=== PATIENT | male | born 1955 | race Caucasian/White ===

== ENCOUNTER → 2017-01-05 | Outpatient (CLI) | payer OTHER ==
[~2017-01-05] MED LIST: CYCL10TA2 PO; HYDR-2762 PO; IBUP-1060 PO; TEMA15CA6 PO
[2017-01-05 16:03] LABS: ALBUMIN 4.2 g/dL (3.4-5.0); CALCIUM 9.7 mg/dL (8.5-10.1); CREATININE 0.8 mg/dL (0.7-1.3); GFR 98.9; POTASSIUM 4.6 mmol/L (3.5-5.1); TOTAL BILIRUBIN 0.6 mg/dL (0.2-1.0); TOTAL PROTEIN 8.5 g/dL (6.4-8.2)
[2017-01-05 18:03] LABS: BASO # 0.1 x10^3/uL (0.0-0.2); BASO % 1 % (0-3); EOS % 3 % (0-3); HEMATOCRIT 47.8 % (39.0-53.0); HEMOGLOBIN 16.4 g/dL (13.0-17.5); LYMPH % 27 % (24-48); MEAN CORPUSCULAR HEMOGLOBIN 32 pg (25-35); MEAN CORPUSCULAR HGB CONC 34 g/dL (31-37); MEAN CORPUSCULAR VOLUME 92 fL (79-100); MONO % 8 % (0-9); NEUT % 62 % (31-73); PLATELET COUNT 108 x10^3/uL (140-400); RED BLOOD COUNT 5.17 x10^6/uL (4.30-5.70); RED CELL DISTRIBUTION WIDTH 13.9 % (11.5-14.5); WHITE BLOOD COUNT 7.6 x10^3/uL (4.0-11.0)
== END | disposition home or self-care (01) ==
LOC: SURGPAT 14:39
PROVIDERS: ATTEND Neurological Surgery
DX: Z01.812 Encounter for preprocedural laboratory examination (principal)
CPT/HCPCS: 36415; 80053; 85027

== ENCOUNTER 2017-01-29 07:13 | Observation (INO) | payer OTHER ==
--- NOTE | 2017-01-13 15:30 | HP ---
ADMIT DATE: 01/14/2017 HISTORY OF PRESENT ILLNESS: Leonardo is a pleasant 61-year-old man who is having difficulty with low back pain and pain with radiation to his lower extremities. Most of the pain is in his left leg. The pain tends to radiate into the left anterior thigh. He says he notices back pain and then the pain in the buttock, which then radiates into the hip and anterior thigh. Standing and walking increases his pain significantly. He gets relief by sitting, but after sitting for an hour or so, he has to get up and move. He said the problem has been present for years, but became much worse about 6 months ago. He did have surgery by Dr. Hodge 13 years ago and said that it was not significantly improved. He takes gabapentin, which he feels is not helping as well as ibuprofen, which he also feels is currently not of benefit. He has had chiropractic treatment, which he said did not help. He tried physical therapy for about 2 months and said it was not helping. Epidural steroid injections of lumbar spine were recommended, but the physician said that they would not be of benefit. He does not notice weakness in his lower extremities. The principal problem is pain. PAST MEDICAL HISTORY: Epilepsy and hepatitis C. PAST SURGICAL HISTORY: Spinal stenosis with a laminectomy in 2004. FAMILY HISTORY: No family history reported. SOCIAL HISTORY: Retired. Single. Rarely exercises. Smokes 1 pack per day and has for 40 years. Does not drink alcohol currently. He quit drinking alcohol greater than 10 years ago. He drinks coffee. ALLERGIES: To ANTIHISTAMINE. CURRENT MEDICATIONS: Gabapentin, ibuprofen, temazepam, and Flexeril. REVIEW OF SYSTEMS: A 12-point review of systems was obtained and is noncontributory except that mentioned above. PHYSICAL EXAMINATION: Neurosurgery examination: GENERAL APPEARANCE: Alert, pleasant, in no acute distress. HEAD: Normocephalic and atraumatic. SKIN: Warm and dry, well-healed lumbar incision. MUSCULOSKELETAL: Lumbar paraspinal muscle bulk is normal, restricted range of motion of lumbar spine, [id number] tenderness of lower lumbar spine with palpation, normal range of motion of the lower extremities bilaterally. EXTREMITIES: No clubbing, cyanosis, or edema. NEUROLOGIC: Alert and oriented x 3, normal recent and remote memory, strength 5/5 in bilateral lower extremities, sensory was intact to light touch in bilateral lower extremities, reflexes were present and symmetric in the lower extremities bilaterally, absent knee jerks bilaterally, negative straight leg raising bilaterally, normal gait. IMAGING: I reviewed a lumbar MRI scan. On that study, there are postoperative changes with a laminectomy at L3-L4 and L4-L5. There is severe lateral encroachment of both of these levels, worse at L3-L4. This results in severe stenosis at L3-L4 and moderately severe stenosis at L4-L5. ASSESSMENT/ PLAN: He has a lumbar spinal stenosis at L3-L4 and L4-L5. The problem has not improved with conservative measures. Surgery is difficult and both of these levels had extensive surgery. My recommendation at this point is that since the left-sided pain is much more severe than the right, I would operate on the left direct approach to decompress the nerve roots on the left and see if this will offer him some relief. I explained in the future, he may need surgery on the right-hand side as well. I did caution him about the risks of spinal fluid leak associated with operating his previously operated region with severe stenosis. He understands. He would like to go ahead. We will make the arrangements. ARIANNA GOOD MD DR: HERNANDO/giovanny JOB#: [id number] / [id number] AIDEN
[2017-01-29] VITALS (10 sets, daily range): BP systolic 138–180; BP diastolic 78–101
[~2017-01-29] VITALS: Ht 170.2 cm; Wt 82.1 kg
--- NOTE | 2017-01-29 06:48 | HP ---
ADMIT DATE: 01/29/2017 PREOPERATIVE HISTORY AND PHYSICAL HISTORY OF PRESENT ILLNESS: The patient is a pleasant 61-year-old man who is having difficulty with low back pain and pain with radiation to his lower extremities. Most of the pain is in his left leg. He says that the pain tends to radiate into the left anterior thigh. He says he notices back pain and pain in the buttock, which then radiates into the hip and anterior thigh. Standing and walking increases his pain significantly. He gets relief by sitting, but after sitting for an hour or so, he has to get up and move. He said that the problem has been present for years, but became much worse about 6 months ago. He did have surgery 13 years ago and said that he was not significantly improved. He takes gabapentin, which he feels is not helping as well as ibuprofen, which he also feels is currently not of any benefit. He has had chiropractic treatment, which he said did not help. He tried physical therapy for about 2 months and said it was also not helping. Epidural steroid injections in the lumbar spine were recommended, but the physician said that they would not be of any benefit. He does not notice weakness in his lower extremities. The principal problem is pain. PAST MEDICAL HISTORY: Epilepsy and hepatitis C. PAST SURGICAL HISTORY: Spinal stenosis with a laminectomy in 2004. FAMILY HISTORY: Noncontributory. SOCIAL HISTORY: Retired. Single. Rarely exercises. Smokes 1 pack per day and has for 40 years. He does not drink alcohol. He quit drinking alcohol greater than 10 years ago. He drinks coffee. ALLERGIES: TO ANTIHISTAMINES. CURRENT MEDICATIONS: Gabapentin, ibuprofen, temazepam and cyclobenzaprine. REVIEW OF SYSTEMS: A 12-point review of systems was obtained and is noncontributory except for that mentioned above. PHYSICAL EXAMINATION: Neurosurgery examination: GENERAL APPEARANCE: Alert, pleasant, in no acute distress. HEAD: Normocephalic and atraumatic. SKIN: Warm and dry, well-healed lumbar incision. MUSCULOSKELETAL: Lumbar paraspinal muscle bulk is normal, restricted range of motion of the lumbar spine, [id number] tenderness of the lower lumbar spine with palpation, normal range of motion of the lower extremities bilaterally. EXTREMITIES: No clubbing, cyanosis or edema. NEUROLOGIC: Alert and oriented x 3, normal recent and remote memory, strength 5/5 in bilateral lower extremities, sensory was intact to light touch in bilateral lower extremities, reflexes were present and symmetric in lower extremities bilaterally. Absent knee jerks bilaterally, negative straight leg raising bilaterally, normal gait. IMAGING: I reviewed a lumbar MRI scan. On that study, there are postoperative changes with a laminectomy at L3-L4 and L4-L5. There is severe lateral encroachment at both of these levels, but worse at L3-L4. This results in severe stenosis at L3-L4 and moderately severe stenosis at L4-L5. ASSESSMENT/ PLAN: He has lumbar spinal stenosis at L3-L4 and L4-L5. The problem has not improved with conservative measures. Surgery is difficult in that both of these levels has had extensive surgery in the past. My recommendation at this point is that since the left-sided pain is much more severe than the right, I would operate on the left direct approach and decompress the nerve roots on the left and see if this will offer him some relief. I explained that in the future, he may need surgery on the right side as well. I did caution him about the risks of spinal fluid leak associated with operating in his previously operated region with severe stenosis. He understands. He would like to go ahead. We will make the arrangements. ARIANNA GOOD MD DR: HERNANDO/giovanny JOB#: [id number] / [id number] AIDEN
[~2017-01-29 07:13] MED LIST changes: +BACITRACIN 50,000 UNIT in IV NORMAL SALINE 1000ML BAG 1,000 ML IRR ONE; +CEFAZOLIN 2GM PREMIX 50 ML IV PRN; +FENTANYL PF 100 MCG/2 ML VIAL. IV PRN; +IV RINGERS,LACTATED 1000ML 1,000 ML IV SCH; +LIDOCAINE 1% 1 ML SYRINGE. ID PRN; +ONDANSETRON PF 4 MG/2 ML VIAL. IV PRN; +PROCHLORPERAZINE 10 MG/2 ML VIAL. IV PRN
[2017-01-29] MEDS ORDERED: KETOROLAC 60 MG/2 ML SYRINGE FOR OR. ONE (07:29)
[2017-01-29] MEDS ORDERED: BUPIVAC MPF-EPI 0.5%-1:200000 30 ML VIAL. ONE (07:29)
[2017-01-29] MEDS ORDERED: THROMBIN 20,000 UNIT SPRAY.SYRN KIT TP ONE ×2 (07:29→16:17)
[2017-01-29] MEDS ORDERED: GELATIN SPONGE SIZE 100. ONE (07:29)
[2017-01-29] MEDS: IV RINGERS,LACTATED 1000ML 1,000 ML IV SCH ×2 (08:09→21:20)
[2017-01-29] MEDS ORDERED: LIDOCAINE 2% 100 MG/5 ML DISP.SYRIN. ONE (08:31)
[2017-01-29] MEDS ORDERED: PROPOFOL 20 ML IV ONE (08:31)
[2017-01-29] MEDS ORDERED: PROPOFOL 50 ML IV ONE ×2 (08:31→13:23)
[2017-01-29] MEDS ORDERED: REMIFENTANIL 2 MG VIAL. IV ONE (08:31)
[2017-01-29] MEDS ORDERED: FENTANYL PF 100 MCG/2 ML VIAL. ONE (08:31)
[2017-01-29] MEDS ORDERED: 0.9 % SODIUM CHLORIDE 50 ML VIAL. IJ ONE (08:31)
[2017-01-29] MEDS ORDERED: SUCCINYLCHOLINE 200 MG/10 ML VIAL. ONE (08:32)
[2017-01-29] MEDS ORDERED: ROCURONIUM 50 MG/5 ML VIAL. ONE (08:32)
[2017-01-29] MEDS ORDERED: DESFLURANE 61 TO 120 MINUTES IH ONE (12:07)
[2017-01-29] MEDS ORDERED: ONDANSETRON PF 4 MG/2 ML VIAL. ONE (12:07)
[2017-01-29] MEDS ORDERED: DEXAMETHASONE SOD PHOS 20 MG/5 ML VIAL. ONE (12:08)
[2017-01-29] MEDS ORDERED: EPHEDRINE PF IN SALINE 50 MG/5 ML DISP.SYRIN. IV ONE (12:09)
[2017-01-29] MEDS ORDERED: PHENYLEPHRINE in 0.9% NACL PF 1 MG/10 ML DISP.SYRIN. IV ONE (12:25)
[2017-01-29] MEDS: POTASSIUM CL 20MEQ D5-0.45NACL 1,000 ML IV SCH ×2 (15:44→19:35)
[2017-01-29] MEDS ORDERED: CALCIUM CARBONATE 500 MG TAB.CHEW PO PRN (15:45)
[2017-01-29] MEDS ORDERED: FENTANYL PF 100 MCG/2 ML VIAL. IV PRN ×2 (15:45)
[2017-01-29] MEDS ORDERED: MAG HYDROX/ALUMINUM HYD/SIMETH 30 ML ORAL.SUSP PO PRN (15:45)
[2017-01-29] MEDS ORDERED: 0.9 % SODIUM CHLORIDE 10 ML DISP.SYRIN. IV PRN (15:45)
[2017-01-29] MEDS ORDERED: MAGNESIUM HYDROXIDE 2,400 MG/30 ML ORAL.SUSP. PO PRN (15:45)
[2017-01-29] MEDS ORDERED: ONDANSETRON PF 4 MG/2 ML VIAL. IV PRN (15:45)
[2017-01-29] MEDS ORDERED: ACETAMINOPHEN 325 MG TABLET. PO PRN (15:45)
[2017-01-29] MEDS ORDERED: ZOLPIDEM 5 MG TABLET. PO PRN (15:45)
[2017-01-29] MEDS ORDERED: IBUPROFEN 800 MG TABLET. PO PRN (15:45)
[2017-01-29] MEDS ORDERED: TEMAZEPAM 15 MG CAPSULE PO PRN (15:45)
[2017-01-29] MEDS: FENTANYL PF 100 MCG/2 ML VIAL. IV PRN ×2 (15:49→15:57)
[2017-01-29] MEDS ORDERED: TRAMADOL 50 MG TABLET. PO PRN ×2 (19:30)
[2017-01-29] MEDS: DOCUSATE SODIUM 100 MG CAPSULE PO SCH (20:53)
[2017-01-29] MEDS: CYCLOBENZAPRINE 10 MG TABLET. PO PRN (22:54)
[2017-01-30 00:49] VITALS: BP 155/76
[2017-01-30 02:50] VITALS: BP 156/81
[2017-01-30 06:15] VITALS: BP 160/81
[2017-01-30] MEDS: IV RINGERS,LACTATED 1000ML 1,000 ML IV SCH (07:55)
[2017-01-30] MEDS: POTASSIUM CL 20MEQ D5-0.45NACL 1,000 ML IV SCH (07:55)
--- NOTE | 2017-01-30 09:20 | DISCH ---
DISCHARGE INSTRUCTIONS Condition on Discharge Condition on Discharge: Stable Activity After Discharge Activity Instructions for Disc: Activity as tolerated, Avoid exertion Other activity instructions: no driving for a week Bathing Instructions: Shower-keep dressing dry Lifting Instructions after Dis: No heavy lifting, No pulling or pushing, Do not lift >10 pounds Diet after Discharge Additional Diet Restrictions: resume home diet Wound Incision Care Wound/Incision Care: Ice to area for comfort Other wound/incision instructi: may remove dressing in 48 hrs if drythen may shower- no soaking Contacting the after DC Call your doctor for: Concerns you may have Follow-Up Follow up with: Dr. Shah in 2 weeks [phone] MARILEE COOK APRN Jan 30, 2017 09:20
[2017-01-30] MEDS ORDERED: TRAM50TA PO (09:21)
[2017-01-30] MEDS ORDERED: METH-38 PO (09:24)
[2017-01-30] MEDS: DOCUSATE SODIUM 100 MG CAPSULE PO SCH (09:34)
[2017-01-30] MEDS: CYCLOBENZAPRINE 10 MG TABLET. PO PRN (09:35)
--- NOTE | 2017-01-30 09:44 | PDOC ---
PROGRESS NOTES Subjective Subjective POD #1 legs feel good back/ incisional pain controlled with tramadol Objective Objective Vital Signs Date Time Temp Pulse Resp B/P Pulse Ox O2 Delivery O2 Flow Rate FiO2 01/30/17 09:36 16 Room Air 01/30/17 06:15 98.1 70 160/81 97 98.1 01/29/17 15:57 10.0 Intake and Output 01/30/17 07:00 Intake Total 3280 ml Output Total 1800 ml Balance 1480 ml Intake Oral 1230 ml IV Total 2050 ml Output Urine Total 1700 ml Estimated Blood Loss 100 ml Physical Exam General: Alert, Oriented X3, Cooperative, No acute distress MUSCULOSKELETAL: Other (GAYLE) Neuro: Normal speech Skin: Other (Dressing C,D, I, flat) Assessment Assessment Problems Medical Problems: (1) Lumbar stenosis Status: Acute Plan Plan of Care dc home f/u 2 weeks Comment Review of Relevant I have reviewed the following items isis (where applicable) has been applied. Medications Current Medications Ondansetron HCl (Zofran) 4 mg PRN Q6HRS PRN IV Nausea; Start 01/14/17 at 07:00 ; Stop 01/15/17 at 06:59; Status DC Fentanyl Citrate (Fentanyl 2ml Vial) 25 mcg PRN Q5MIN PRN IV MILD PAIN; Start 01/14/17 at 07:00; Stop 01/15/17 at 06:59; Status DC Fentanyl Citrate 50 mcg 50 mcg PRN Q5MIN PRN IV MODERATE PAIN; Start 01/14/17 at 07:00; Stop 01/15/17 at 06:59; Status DC Lactated Ringer's (Iv Lactated Ringers) 1,000 ml @ 30 mls/hr Q24H IV ; Start at 07:00; Stop 01/14/17 at 18:59; Status DC Lidocaine HCl 2 ml 1X PRN PRN ID IV START; Start 01/14/17 at 07:00; Stop at 06:59; Status DC Prochlorperazine Edisylate 5 mg 5 mg PACU PRN PRN IV NAUSEA; Start 01/14/17 at 07:00; Stop 01/15/17 at 06:59; Status DC Bacitracin/Sodium Chloride (Iv Sodium Chloride 0.9% 1000ml Bag) 1,000 ml @ 1, 000 mls/hr 1X PERIOP ONCE IRR Last administered on 01/29/17 12:26; Start 01/14 at 06:00; Stop 01/14/17 at 06:59; Status DC Ondansetron HCl (Zofran) 4 mg PRN Q6HRS PRN IV Nausea; Start 01/29/17 at 07:00; Stop 01/30/17 at 06:59; Status DC Fentanyl Citrate (Fentanyl 2ml Vial) 25 mcg PRN Q5MIN PRN IV MILD PAIN; Start 01/29/17 at 07:00; Stop 01/30/17 at 06:59; Status DC Fentanyl Citrate 50 mcg 50 mcg PRN Q5MIN PRN IV MODERATE PAIN Last administered on 01/29/17 15:57; Start 01/29/17 at 07:00; Stop 01/30/17 at 06:59; Status DC Lactated Ringer's (Iv Lactated Ringers) 1,000 ml @ 0 mls/hr Q0M IV ; Start 01/29 at 07:00; Stop 01/29/17 at 18:59; Status DC Lidocaine HCl 2 ml 1X PRN PRN ID IV START; Start 01/29/17 at 07:00; Stop at 06:59; Status DC Prochlorperazine Edisylate 5 mg 5 mg PACU PRN PRN IV NAUSEA; Start 01/29/17 at 07:00; Stop 01/30/17 at 06:59; Status DC Bacitracin 43750 unit/Sodium Chloride 1,000 ml @ 1,000 mls/hr 1X PERIOP ONCE IRR ; Start 01/29/17 at 06:00; Stop 01/29/17 at 06:59; Status DC Cefazolin Sodium/ Dextrose (Ancef 2gm Premix) 50 ml @ 100 mls/hr 1X PREOP PRN IV PRIOR TO PROCEDURE Last administered on 01/29/17 12:05; Start 01/29/17 at 06: 00; Stop 01/29/17 at 18:00; Status DC Bupivacaine HCl/ Epinephrine Bitart (Sensorcain-Mpf Epi 0.5%-1:124429) 30 ml STK -MED ONCE .ROUTE Last administered on 01/29/17 12:26; Start 01/29/17 at 07:29; Stop 01/29/17 at 07:30; Status DC Gelatin (Gelfoam Size 100) 1 each STK-MED ONCE .ROUTE Last administered on 01/29 12:26; Start 01/29/17 at 07:29; Stop 01/29/17 at 07:30; Status DC Ketorolac Tromethamine (Toradol For Or Only) 60 mg STK-MED ONCE .ROUTE Last administered on 01/29/17 12:26; Start 01/29/17 at 07:29; Stop 01/29/17 at 07:30; Status DC Thrombin 57819 unit 20,000 unit STK-MED ONCE TP Last administered on 01/29/17 12:26; Start 01/29/17 at 07:29; Stop 01/29/17 at 07:30; Status DC Lactated Ringer's 1,000 ml @ 75 mls/hr [id number] IV Last administered on 08:09; Start 01/29/17 at 08:00 Propofol (Diprivan) 20 ml @ As Directed STK-MED ONCE IV ; Start 01/29/17 at 08:31 ; Stop 01/29/17 at 08:32; Status DC Lidocaine HCl 100 mg 100 mg STK-MED ONCE .ROUTE ; Start 01/29/17 at 08:31; Stop 01/29/17 at 08:32; Status DC Propofol (Diprivan) 50 ml @ As Directed STK-MED ONCE IV ; Start 01/29/17 at 08:31 ; Stop 01/29/17 at 08:32; Status DC Sodium Chloride (Sodium Chloride) 50 ml STK-MED ONCE IJ ; Start 01/29/17 at 08:31 ; Stop 01/29/17 at 08:32; Status DC Fentanyl Citrate (Fentanyl 2ml Vial) 100 mcg STK-MED ONCE .ROUTE ; Start at 08:31; Stop 01/29/17 at 08:32; Status DC Remifentanil HCl (Ultiva) 2 mg STK-MED ONCE IV ; Start 01/29/17 at 08:31; Stop at 08:32; Status DC Succinylcholine Chloride (Anectine) 200 mg STK-MED ONCE .ROUTE ; Start 01/29/17 at 08:32; Stop 01/29/17 at 08:33; Status DC Rocuronium Axtell (Zemuron) 50 mg STK-MED ONCE .ROUTE ; Start 01/29/17 at 08:32 ; Stop 01/29/17 at 08:33; Status DC Ondansetron HCl (Zofran) 4 mg STK-MED ONCE .ROUTE ; Start 01/29/17 at 12:07; Stop 01/29/17 at 12:08; Status DC Desflurane (Suprane) 60 ml STK-MED ONCE IH ; Start 01/29/17 at 12:07; Stop at 12:08; Status DC Dexamethasone Sodium Phosphate (Decadron) 20 mg STK-MED ONCE .ROUTE ; Start 01/29 at 12:08; Stop 01/29/17 at 12:09; Status DC Ephedrine Sulfate 50 mg STK-MED ONCE IV ; Start 01/29/17 at 12:09; Stop 01/29/17 at 12:10; Status DC Phenylephrine HCl 1 mg 1 mg STK-MED ONCE IV ; Start 01/29/17 at 12:25; Stop at 12:26; Status DC Propofol (Diprivan) 50 ml @ As Directed STK-MED ONCE IV ; Start 01/29/17 at 13:23 ; Stop 01/29/17 at 13:24; Status DC Ibuprofen (Motrin) 800 mg PRN Q6HRS PRN PO INFLAMMATION; Start 01/29/17 at 15:45 Temazepam (Restoril) 15 mg PRN QHS PRN PO INSOMNIA Last administered on 22:54; Start 01/29/17 at 15:45 Fentanyl Citrate (Fentanyl 2ml Vial) 25 mcg PRN Q1HR PRN IV PAIN Last administered on 01/29/17 19:31; Start 01/29/17 at 15:45 Fentanyl Citrate (Fentanyl 2ml Vial) 50 mcg PRN Q1HR PRN IV PAIN; Start at 15:45 Acetaminophen (Tylenol) 650 mg PRN Q6HRS PRN PO MILD PAIN / TEMP; Start at 15:45 Al Hydrox/Mg Hydrox/Simethicone (Mylanta Plus Xs) 30 ml PRN Q3HRS PRN PO HEARTBURN / GAS; Start 01/29/17 at 15:45 Calcium Carbonate/ Glycine (Tums) 500 mg PRN Q3HRS PRN PO INDIGESTION; Start at 15:45 Zolpidem Tartrate (Ambien) 5 mg PRN QHS PRN PO INSOMNIA, MAY REPEAT IN 1HR; Start 01/29/17 at 15:45 Sodium Chloride 3 ml 3 ml QSHIFT PRN IV AFTER MEDS AND BLOOD DRAWS; Start at 15:45 Potassium Chloride/Dextrose/ Sod Cl (KCl 20 Meq In D5W-1/2 NS) 1,000 ml @ 75 mls/hr [id number] IV Last administered on 01/29/17 19:35; Start 01/29/17 at 15:44 Cyclobenzaprine HCl (Flexeril) 10 mg PRN TID PRN PO MUSCLE SPASMS Last administered on 01/30/17 09:35; Start 01/29/17 at 15:45 Docusate Sodium (Colace) 100 mg BID PO Last administered on 01/30/17 09:34; Start 01/29/17 at 21:00 Magnesium Hydroxide (Milk Of Magnesia) 2,400 mg PRN Q12HR PRN PO CONSTIPATION; Start 01/29/17 at 15:45 Ondansetron HCl (Zofran) 4 mg PRN Q6HRS PRN IV NAUESA, 1ST CHOICE; Start at 15:45 Thrombin 20,000 unit STK-MED ONCE TP ; Start 01/29/17 at 16:17; Stop 01/29/17 at 16:18; Status DC Tramadol HCl (Ultram) 50 mg PRN Q6HRS PRN PO PAIN Last administered on 04:31; Start 01/29/17 at 19:30 Tramadol HCl (Ultram) 100 mg PRN Q6HRS PRN PO PAIN Last administered on 09:36; Start 01/29/17 at 19:30 Active Scripts Active Robaxin-750 (Methocarbamol) 750 Mg Tablet 750 Mg PO TID PRN PRN Tramadol Hcl 50 Mg Tablet 100 Mg PO PRN Q6HRS PRN Reported Ibuprofen 800 Mg Tablet 800 Mg PO PRN Q6HRS PRN not given in hospital may resume when available Restoril (Temazepam) 15 Mg Capsule 15 Mg PO HS PRN last dose last night next dose tonigh if needed Vitals/I & O Vital Sign - Last 24 Hours 01/29/17 01/29/17 01/29/17 01/29/17 15:38 15:38 15:49 15:53 Temp 97.0 97.0 Pulse 104 96 Resp 18 20 18 B/P 185/92 171/83 Pulse Ox 100 100 100 O2 Delivery Simple Mask Mask Simple Mask Simple Mask O2 Flow Rate 10 10 10.0 10 01/29/17 01/29/17 01/29/17 01/29/17 15:57 16:00 16:08 16:23 Pulse 94 97 Resp 20 18 20 B/P 175/94 164/88 Pulse Ox 100 96 97 O2 Delivery Simple Mask Room Air Room Air Room Air O2 Flow Rate 10.0 01/29/17 01/29/17 01/29/17 01/29/17 16:38 17:00 17:10 17:15 Temp 97.0 97.7 97.0 97.7 Pulse 88 93 73 Resp 20 18 16 B/P 179/86 138/83 152/91 Pulse Ox 95 93 96 O2 Delivery Room Air Room Air Room Air Room Air 01/29/17 01/29/17 01/29/17 01/29/17 17:30 18:00 18:32 19:00 Temp 97.5 97.5 Pulse 90 99 94 91 Resp 16 18 18 20 B/P 149/101 175/94 178/97 173/91 Pulse Ox 93 94 96 97 O2 Delivery Room Air Room Air 01/29/17 01/29/17 01/29/17 01/29/17 19:30 19:31 20:00 20:07 Pulse 89 Resp 20 20 20 B/P 177/80 Pulse Ox 96 95 96 O2 Delivery Room Air Room Air Room Air Room Air 01/29/17 01/29/17 01/29/17 01/30/17 20:30 21:30 22:58 00:49 Temp 98.0 97.8 98.0 97.8 Pulse 72 72 76 66 Resp 20 20 20 B/P 180/87 158/78 160/83 155/76 Pulse Ox 96 98 96 O2 Delivery Room Air Room Air Room Air 01/30/17 01/30/17 01/30/1717 02:50 04:31 05:45 06:15 Temp 98.2 98.1 98.2 98.1 Pulse 75 70 Resp 20 20 20 20 B/P 156/81 160/81 Pulse Ox 97 97 96 97 O2 Delivery Room Air Room Air Room Air Room Air 01/30/17 01/30/17 07:39 09:36 Resp 16 O2 Delivery Room Air Room Air Intake and Output 01/29/17 01/29/17 01/30/17 15:00 23:00 07:00 Intake Total 50 ml 2180 ml 1050 ml Output Total 450 ml 1350 ml Balance 50 ml 1730 ml -300 ml MARILEE COOK APRN Jan 30, 2017 09:44
[2017-01-30 10:12] VITALS: BP 172/92
--- NOTE | 2017-01-30 10:25 | OP ---
DATE OF SURGERY: 01/29/2017 PREOPERATIVE DIAGNOSIS: Lumbar spinal stenosis with previous surgery at L3-L4, L4-L5. POSTOPERATIVE DIAGNOSIS: Lumbar spinal stenosis with previous surgery at L3-L4, L4-L5. OPERATION PERFORMED: Bilateral hemilaminotomies with removal of scar, thickened ligament and nerve root compression at L3-L4 and L4-L5. The operation was done with EMG monitoring, fluoroscopy and microscopic dissection. SURGEON: Harvinder Good M.D. MEDICAL ILLUSTRATOR: NATALIA Taylor, assisted with the surgery. She assisted with the decompression as well as the closure. OPERATIVE INDICATIONS: The patient is a very pleasant 61-year-old man who is having difficulty with back pain and left greater than right leg pain. 13 years ago, he underwent lumbar surgery which consisted of laminectomy at L3-L4 and L4-L5 and did not do well. Currently on imaging studies, he has severe lateral stenosis with thickened facet hypertrophic ligament and severe nerve root compression at L3-L4 and L4-L5. I recommended bilateral lumbar microdecompressive surgery at both of these levels. He understood the risks involved since the patient had undergone previous very extensive surgery here. He understood the technique and the expected postoperative course and he wished to go ahead. DESCRIPTION OF PROCEDURE: Following general endotracheal anesthesia, the patient was positioned prone on the Declan table. His lumbar region was prepped and draped in standard fashion. ABDOULAYE hose and AV impulse boots were applied for DVT prophylaxis. The microscope was draped. Fluoroscopy was draped and brought into the field. Monitoring was established. Ancef 2 grams was given less than 1 hour prior to initiation of the surgery. Using fluoroscopic guidance, an incision was made from upper L3 to inferior L5. I dissected down through the skin and subcutaneous tissue and I reflected the paraspinal muscles and placed self-retaining retractors. I brought in the microscope and the remainder of surgery was done with the microscope using microscopic technique beginning on the left side. I used a large long curette and exposed the edges of his previous laminectomy, removed scar from over the lateral lamina and the facet. Bringing in high speed air drill, I went to L3-L4. I burred down a very generous hemilaminotomy and then grasped and began to tease back and pull away thickened ligamentum of flavum which was markedly scarred to the underlying dura. As I worked, I was able to fully decompress this region. I then moved down to L4-L5 and performed the identical operation at L4-L5. Surgery was very difficult. There was considerable scarring and he required extensive microsurgery to allow me to work through the scar . I did perform partial foraminotomies at both levels. I then went to the right side in a similar fashion at L3-L4 and L4-L5. I burred down and enlarged hemilaminotomies laterally. I grasped the lateral ligament and thickened facet trimming this away and pulling the ligament away after I had obtained a plane between the ligament and dura. Again, I performed partial foraminotomies. Again, I worked quite far laterally and fully decompressed both of these regions. Following this, then I explored carefully. I had an excellent decompression. I irrigated copiously. I then, after obtaining perfect hemostasis, closed the wound in layers with absorbable suture and the skin was closed with a 4-0 subcuticular stitch. The operation went very well. The patient awakened uneventfully, taken to recovery room with normal strength in his lower extremities. I was quite pleased with the surgery. HARVINDER GOOD MD DR: HERNANDO/giovanny JOB#: [id number] / [id number] AIDEN
--- NOTE | 2017-02-02 13:30 | PATHOLOGY ---
PATHOLOGY REPORT * * * * * * * * FINAL DIAGNOSIS: Segments of fibrocartilaginous, fibroadipose, and skeletal muscle tissue and calcified bone, lumbar decompression: - Degenerative changes of fibrocartilaginous tissue. COMMENT: There is no evidence of an acute inflammatory process or malignancy. (JPM:; d/t: 02/02/17) REPORT ELECTRONICALLY SIGNED BY: Buddy Edwards M.D. DATE/TIME: 02/02/2017 13:30 * * * * * * * * GROSS PATHOLOGY: Received in formalin labeled "Katarzyna Costello, lumbar decompression" are multiple segments of perdue, rubbery, and gritty tissue measuring 6.2 x 3.1 x 0.6 cm in aggregate dimensions. The tissue is submitted representatively in cassette A1.(CAA; 01/30/2017) INITIAL CPT CODE(S): A; 33802, 55948 Professional services performed [place] [facility] [place] [address] Technical services performed by [facility] at [address] [place] [address], [address] [address]. SPECIMEN(S) RECEIVED: A.Lumbar decompression CLINICAL HISTORY: Lumbar stenosis PATIENT: KATARZYNA MORENO /AGE: 302/05/1955 (Age: 61) PATIENT #: [id number] ALT CASE #: SPECIMEN COLLECTION DATE: 01/29/2017 SPECIMEN RECEIVED DATE: 01/30/2017 [facility] - [address] [place] [address] - PHONE: [phone] * * * END OF REPORT * * *
== END 2017-01-30 11:00 | disposition home or self-care (01) ==
LOC: SURG 07:13 → 4 SOUTHEST 16:33
PROVIDERS: ADMIT Neurological Surgery; ATTEND Neurological Surgery
DX: M48.06 Spinal stenosis, lumbar region (principal); G40.909 Epilepsy, unspecified, not intractable, without status epilepticus; Z87.891 Personal history of nicotine dependence
CPT/HCPCS: 63047; 63048; 76000; 88304; 96374; 96376; 97161; 97530; 99406; G0378; G0379; G8978; G8979; G8980; J0330; J0690; J1100; J1885; J2370; J2405; J2704; J3010; J3490; J7030